=== PATIENT | female | born 1985 | race Caucasian/White ===

== ENCOUNTER 2020-06-30 11:22 | Emergency (ER) | payer OTHER ==
[2020-06-30 12:14] LABS: BASOPHIL 0.2 % (0-2); EOSINOPHIL 0.2 % (0-5); HCT 44.3 % (37.0-47.0); HGB 15.8 g/dl (12.5-16.0); LYMPHOCYTE 8.8 % (15-48); MCH 36.7 pg (25.0-31.0); MCHC 35.7 g/dL (32.0-36.0); MCV 102.8 fL (78.0-100.0); MONOCYTE 9.5 % (0-12); MPV 9.8 fL (6.0-9.5); NEUTROPHIL 80.9 % (41-80); NRBC 0; PLT 272 K/uL (150-400); RBC 4.31 M/uL (4.20-5.40); RDW 15.4 % (11.5-14.0); WBC 11.4 K/uL (4.0-10.5)
[2020-06-30 12:41] LABS: BILIRUBIN 2+ mg/dL (NEGATIVE); BLOOD NEGATIVE Ery/uL (NEGATIVE); CLARITY CLEAR (CLEAR); COLOR AMBER (YELLOW); GLUCOSE (U) NORMAL (NORMAL); LEUKOCYTES TRACE Leu/uL (NEGATIVE); NITRITE POSITIVE (NEGATIVE); PROTEIN 1+ mg/dL (NEGATIVE); SPECIFIC GRAVITY >=1.030 (1.001-1.030)
[2020-06-30 12:42] LABS: BILIRUBIN - TOTAL 1.2 mg/dL (0.2-1.0); BUN/CREAT RATIO (CALC) 7.5 RATIO; CREATININE 2.13 mg/dL (0.51-0.95); GLOBULIN (CALCULATION) 4.8 g/dL; TOTAL PROTEIN 8.8 g/dL (6.4-8.2)
[2020-06-30 12:44] LABS: POTASSIUM 2.2 mmol/L (3.5-5.1)
[2020-06-30 12:46] LABS: BACTERIA 4+; URINARY RBC RARE
[2020-06-30 13:34] LABS: CORONAVIRUS 2019 SARS-COV-2 NEGATIVE (NEGATIVE); INFLUENZA A NAA NEGATIVE (NEGATIVE)
[2020-06-30 15:42] LABS: BUN/CREAT RATIO (CALC) 10.2 RATIO; CREATININE 1.57 mg/dL (0.51-0.95); POTASSIUM 2.6 mmol/L (3.5-5.1)
[2020-06-30] MEDS ORDERED: ONDANSETRON ODT4 MG PO (16:05)
[2020-06-30] MEDS ORDERED: K-DUR20 MEQ PO (16:05)
== END 2020-06-30 16:19 | disposition home or self-care (01) ==
LOC: FER 11:22
PROVIDERS: Emergency Medicine
DX: E86.0 Dehydration (principal); E87.6 Hypokalemia; N17.9 Acute kidney failure, unspecified; K21.9 Gastro-esophageal reflux disease without esophagitis; F32.9 Major depressive disorder, single episode, unspecified; F17.200 Nicotine dependence, unspecified, uncomplicated; Z79.899 Other long term (current) drug therapy; Z20.822 Contact with and (suspected) exposure to COVID-19
CPT/HCPCS: 36415; 80048; 80053; 81001; 82150; 83690; 85025; J2405; J3480; J7120; U0002

== ENCOUNTER 2020-10-09 17:15 | Emergency (ER) | payer OTHER ==
[~2020-10-09 17:15] MED LIST: K-DUR20 MEQ PO; ONDANSETRON ODT4 MG PO
[2020-10-09 17:41] LABS: BASOPHIL 0.4 % (0-2); EOSINOPHIL 0.1 % (0-5); HCT 42.9 % (37.0-47.0); HGB 14.8 g/dl (12.5-16.0); MCH 35.9 pg (25.0-31.0); MCHC 34.5 g/dL (32.0-36.0); MCV 104.1 fL (78.0-100.0); MONOCYTE 5.1 % (0-12); MPV 9.9 fL (6.0-9.5); NEUTROPHIL 86.9 % (41-80); NRBC 0; PLT 533 K/uL (150-400); RBC 4.12 M/uL (4.20-5.40); RDW 15.4 % (11.5-14.0); WBC 13.7 K/uL (4.0-10.5)
[2020-10-09 17:52] LABS: BUN/CREAT RATIO (CALC) 10.8 RATIO; CREATININE 0.65 mg/dL (0.51-0.95); POTASSIUM 3.5 mmol/L (3.5-5.1)
[2020-10-09] MEDS ORDERED: CYCLOBENZAPRINE10 MG PO (21:05)
[2020-10-09] MEDS ORDERED: ONDANSETRON ODT4 MG PO (21:22)
[2020-10-09] MEDS ORDERED: PROMETHEGA12.5 MG/SU PR (21:22)
== END 2020-10-09 21:34 | disposition home or self-care (01) ==
LOC: FER 17:15
PROVIDERS: Nurse Practitioner Family
DX: M62.838 Other muscle spasm (principal); R11.10 Vomiting, unspecified; Z91.040 Latex allergy status; Z91.041 Radiographic dye allergy status
CPT/HCPCS: 36415; 80048; 82550; 83735; 85025; J1100; J1885; J2405; J2550; J3360; J3411; J3475; J7030

== ENCOUNTER 2021-01-01 09:23 | Emergency (ER) | payer OTHER ==
[~2021-01-01 09:23] MED LIST changes: +CYCLOBENZAPRINE10 MG PO; +PROMETHEGA12.5 MG/SU PR
[2021-01-01 10:58] LABS: BASOPHIL 0.8 % (0-2); BILIRUBIN 2+ mg/dL (NEGATIVE); BLOOD TRACE-LYSED Ery/uL (NEGATIVE); COLOR YELLOW (YELLOW); GLUCOSE (U) NORMAL (NORMAL); HCT 43.7 % (37.0-47.0); HGB 15.1 g/dl (12.5-16.0); LEUKOCYTES NEGATIVE Leu/uL (NEGATIVE); LYMPHOCYTE 16.9 % (15-48); MCH 32.4 pg (25.0-31.0); MCHC 34.6 g/dL (32.0-36.0); MCV 93.8 fL (78.0-100.0); MONOCYTE 12.3 % (0-12); MPV 10.6 fL (6.0-9.5); NEUTROPHIL 68.7 % (41-80); NITRITE POSITIVE (NEGATIVE); NRBC 0; PLT 266 K/uL (150-400); PROTEIN TRACE (LOW) mg/dL (NEGATIVE); RBC 4.66 M/uL (4.20-5.40); RDW 14.7 % (11.5-14.0); SPECIFIC GRAVITY >=1.030 (1.001-1.030); UROBILINOGEN 0.2 mg/dL (0.2-1.0); WBC 10.5 K/uL (4.0-10.5)
[2021-01-01 11:00] LABS: CLARITY HAZY (CLEAR)
[2021-01-01 11:17] LABS: BACTERIA 1+; SQUAMOUS EPITHELIAL CELLS 20-50
[2021-01-01 11:29] LABS: ALBUMIN 3.7 g/dL (3.4-5.0); BUN/CREAT RATIO (CALC) 24.3 RATIO; CREATININE 0.7 mg/dL (0.51-0.95); GLOBULIN (CALCULATION) 4.3 g/dL; POTASSIUM 2.6 mmol/L (3.5-5.1)
[2021-01-01] MEDS ORDERED: ONDANSETRON ODT4 MG PO (12:31)
[2021-01-01] MEDS ORDERED: KEFLEX250 MG PO (12:31)
== END 2021-01-01 13:30 | disposition home or self-care (01) ==
LOC: FER 09:23
PROVIDERS: Emergency Medicine
DX: O21.0 Mild hyperemesis gravidarum (principal); O23.41 Unspecified infection of urinary tract in pregnancy, first trimester; O99.281 Endocrine, nutritional and metabolic diseases complicating pregnancy, first trimester; E87.6 Hypokalemia; O99.331 Smoking (tobacco) complicating pregnancy, first trimester; F17.210 Nicotine dependence, cigarettes, uncomplicated; Z3A.00 Weeks of gestation of pregnancy not specified
CPT/HCPCS: 36415; 80053; 81001; 85025; J2405; J3480; J7030

== ENCOUNTER 2021-08-17 20:06 | Inpatient (IN) | payer OTHER ==
[~2021-08-17] VITALS: Ht 160 cm; Wt 59.0 kg
[~2021-08-17 20:06] MED LIST changes: +KEFLEX250 MG PO
[2021-08-17 21:01] LABS: BILIRUBIN NEGATIVE (NEGATIVE); BLOOD NEGATIVE Ery/uL (NEGATIVE); GLUCOSE (U) NORMAL (NORMAL); LEUKOCYTES 2+ Leu/uL (NEGATIVE); NITRITE NEGATIVE (NEGATIVE); PROTEIN NEGATIVE (NEGATIVE); SPECIFIC GRAVITY <=1.005 (1.001-1.030); UROBILINOGEN 0.2 mg/dL (0.2-1.0)
[2021-08-17 21:02] LABS: AMPHETAMINES NEGATIVE (NEGATIVE); BARBITURATES NEGATIVE (NEGATIVE); ECSTASY (MDMA) NEGATIVE (NEGATIVE); MARIJUANA (THC) POSITIVE (NEGATIVE); METHADONE NEGATIVE (NEGATIVE); OPIATES NEGATIVE (NEGATIVE); OXYCODONE NEGATIVE (NEGATIVE)
[2021-08-17 21:06] LABS: HCT 36.3 % (37.0-47.0); MCH 31.3 pg (25.0-31.0); MCHC 33.1 g/dL (32.0-36.0); MCV 94.5 fL (78.0-100.0); MPV 10.1 fL (6.0-9.5); RBC 3.84 M/uL (4.20-5.40); RDW 14.5 % (11.5-14.0); WBC 12.1 K/uL (4.0-10.5)
[2021-08-17 21:08] LABS: BACTERIA TRACE; CLARITY SLIGHTLY HAZY (CLEAR); COLOR STRAW (YELLOW); URINARY RBC RARE
[2021-08-17 21:47] LABS: ALBUMIN 2.9 g/dL (3.4-5.0); BILIRUBIN - TOTAL 0.2 mg/dL (0.2-1.0); BUN/CREAT RATIO (CALC) 14.8 RATIO; CREATININE 0.54 mg/dL (0.51-0.95); GLOBULIN (CALCULATION) 4.5 g/dL; POTASSIUM 3.5 mmol/L (3.5-5.1); TOTAL PROTEIN 7.4 g/dL (6.4-8.2)
[2021-08-18] MEDS ORDERED: VALACYCLOVIR1000 MG PO (00:11)
[2021-08-18] MEDS ORDERED: FOLIC ACID1 MG PO (00:44)
[2021-08-18 16:45] LABS: HCT 35.1 % (37.0-47.0); HGB 11.4 g/dl (12.5-16.0); MCH 31.1 pg (25.0-31.0); MCHC 32.5 g/dL (32.0-36.0); MCV 95.9 fL (78.0-100.0); MPV 9.8 fL (6.0-9.5); RBC 3.66 M/uL (4.20-5.40); RDW 14.4 % (11.5-14.0); WBC 16.8 K/uL (4.0-10.5)
[2021-08-19] MEDS ORDERED: COLACE100 MG PO (19:15)
[2021-08-19] MEDS ORDERED: IBUPROFEN800 MG PO (19:15)
[2021-08-19] MEDS ORDERED: PRENATAL FORMU1 EACH PO (19:16)
== END 2021-08-19 19:33 | disposition home or self-care (01) | DRG 807 ==
LOC: FOD 20:06 → FOB 20:07 → FOD 22:38 → FOB 08-19 19:33
PROVIDERS: ADMIT Specialist
PROC: 10E0XZZ Delivery of Products of Conception, External Approach (ICD-10-PCS; principal; 2021-08-17)
DX: O98.513 Other viral diseases complicating pregnancy, third trimester (principal); Z37.0 Single live birth; Z3A.37 37 weeks gestation of pregnancy; B02.9 Zoster without complications; Z20.822 Contact with and (suspected) exposure to COVID-19
CPT/HCPCS: 36415; 80053; 80305; 81001; 86850; 86900; 86901; 90686; J2405; J2540; J7120; U0002